=== PATIENT | male | born 1965 | race Caucasian/White ===

== ENCOUNTER 2017-03-02 05:10 | Inpatient (IN) | payer BC ==
[~2017-03-02] VITALS: Ht 165.1 cm; Wt 69.0 kg
[~2017-03-02 05:10] MED LIST: LITE COAT ASPI325 M1 PO; ROXICODONE15 MG PO; VITAMIN D31000 UNIT PO; ZANAFLEX4 M1 PO
[2017-04-22] MEDS ORDERED: CLARITIN10 MG PO (10:02)
[2017-04-22] MEDS ORDERED: LIPITOR20 MG PO (10:03)
[2017-04-27 05:54] VITALS: BP 156/89
[2017-04-27 11:27] VITALS: BP 127/77
[2017-04-27 14:43] VITALS: BP 120/69
[2017-04-27 19:52] VITALS: BP 129/77
[2017-04-27 23:39] VITALS: BP 126/73
[2017-04-28 03:47] VITALS: BP 110/70
[2017-04-28 08:19] VITALS: BP 130/63
[2017-04-28 15:47] VITALS: BP 112/72
[2017-04-28 18:11] VITALS: BP 110/70
== END 2017-04-28 20:26 | disposition home or self-care (01) | DRG 460 ==
LOC: 2SOUTH 05:10 → ENRESERV 04-26 22:18 → 2SOUTH 04-27 05:24 → ENRESERV 04-27 11:00 → 3EAST 04-27 11:23 → 2SOUTH 04-27 13:15 → 3EAST 04-28 16:10
DX: M43.17 Spondylolisthesis, lumbosacral region (principal); M51.9 Unspecified thoracic, thoracolumbar and lumbosacral intervertebral disc disorder; M54.16 Radiculopathy, lumbar region; F17.210 Nicotine dependence, cigarettes, uncomplicated; Z79.82 Long term (current) use of aspirin
CPT/HCPCS: 72100; 76000; 86850; 86900; 86901; C1821; J0690; J1100; J1170; J1885; J2270; J2405; J2710; J3010; J3480